=== PATIENT | male | born 1945 | race Caucasian/White ===

== ENCOUNTER → 2017-04-13 | Outpatient (CLI) | payer OTHER | LOC: BMCIMAGING 11:43 | PROVIDERS: ATTEND Physician Assistant Medical | DX: R09.02 Hypoxemia (principal) ==

== ENCOUNTER 2017-05-04 07:54 | Inpatient (IN) | payer OTHER ==
[2017-05-04] MEDS ORDERED: ASPIRIN EC 325 MG TAB PO ONE ×2 (07:57→08:46)
[2017-05-04] MEDS ORDERED: diphenhydrAMINE 25 MG CAP PO ONE ×2 (07:57→08:46)
[2017-05-04] MEDS ORDERED: NS 1,000 ML IV ONE (07:57)
[2017-05-04] MEDS ORDERED: DIAZEPAM 5 MG TAB PO ONE (07:57)
[2017-05-04] MEDS ORDERED: FAMOTIDINE 20 MG TAB PO ONE (07:57)
--- NOTE | 2017-05-04 08:01 | PDHPUP ---
History & Physical Update H&P update statement: This history and physical update is based on an assessment of the patient which was completed after admission or registration (within 24 hours), but prior to the surgery/procedure. H&P update: H&P reviewed & patient examined, no change in patient's condition since H&P completed
--- NOTE | 2017-05-04 08:01 | PDPROPOC ---
Sedation Plan of Care Sedation Plan of Care: vital signs stable, mental status noted, patient educated of risks, benefits, alternatives, patient can tolerate sedation ASA Classification: ASA 3 Planned drugs: fentanyl, midazolam Mallampati Score: Class 3 Mallampati Reference Image: Patient passed 3-3-2 rule?: Yes
--- NOTE | 2017-05-04 08:21 | CPEKG ---
Heart Rate: 108 RR Interval: 556 P-R Interval: 176 QRSD Interval: 142 QT Interval: 376 QTC Interval: 504 P [place]: 43 QRS [place]: -84 T Wave [place]: 31 EKG Severity - ABNORMAL ECG - EKG Impression: SINUS TACHYCARDIA EKG Impression: PROBABLE LEFT ATRIAL ABNORMALITY EKG Impression: RIGHT BUNDLE BRANCH BLOCK Electronically Signed By: Alfredo Davis 04-May-2017 08:54:14
[2017-05-04 08:36] LABS: PLATELET COUNT 377 10^3/uL (150-400)
[2017-05-04 08:44] LABS: INR 1.08 (0.83-1.16); PROTIME(PATIENT) 14.2 SEC (12.0-15.0)
[2017-05-04] MEDS ORDERED: FAMOTIDINE 20 MG TAB ONE (08:46)
[2017-05-04] MEDS ORDERED: DIAZEPAM 5 MG TAB ONE (08:46)
[2017-05-04] MEDS ORDERED: IOPAMIDOL (ISOVUE-370) 150 ML BTL IV ONE ×3 (09:18→11:55)
[2017-05-04] MEDS ORDERED: MIDAZOLAM 2 MG/2 ML VIAL ONE ×2 (09:18→11:55)
[2017-05-04] MEDS ORDERED: fentaNYL 100 MCG/2 ML INJ ONE ×2 (09:18→11:55)
[2017-05-04] MEDS ORDERED: HEPARIN 10,000 UNIT/10 ML MDV (1,000 UNIT/ML) ONE (09:18)
[2017-05-04] MEDS ORDERED: VERAPAMIL 5 MG/2 ML VIAL ONE (09:18)
[2017-05-04] MEDS ORDERED: LIDOCAINE 1% 300 MG/30 ML SDV ONE ×2 (09:18→11:55)
[2017-05-04] MEDS ORDERED: IOPAMIDOL (ISOVUE-300) 100 ML BTL ONE (10:14)
[2017-05-04] MEDS ORDERED: IOPAMIDOL (ISOVUE 370) 100 ML BTL IV ONE (10:15)
--- NOTE | 2017-05-04 11:30 | ECHO ---
[email or web address] [address] [address] Main: [phone] Fax: Transthoracic Echocardiogram Name: JENNIFER TADEO MR#: [id number] Study Date: 05/04/2017 Study Time: 08:49 AM Date of : 1945 Age: 71 year(s) Height: 183 cm (72.05 in.) Weight: 83.01 kg (183 lb.) BSA: 2.05 m2 Gender: Male Examination: Echo Indication: Pre Cath, Decreased O2 Sat's Image Quality: Contrast: Requested by: Carlos A Vegas BP: 136 mmHg/85 mmHg Heart Rate: Rhythm: Tachycardia Indication: Pre Cath, Decreased O2 Sat's Procedure Staff Cupola Patcher: Antonino Soria [facility] Reading Physician: Jessy Krishnamurthy Requesting Provider: Conclusions: Normal size left ventricle. Normal size right ventricle. Normal RV function. The left atrium is mildly to moderately dilated. The interatrial septum is aneurysmal with no evidence of PFO by colorflow doppler.. Mild mitral valve stenosis is present. There is mild focal calcification on the posteior mitral annulus. Mild aortic valve regurgitation is present. Mild calcific aortic valve stenosis. The Av Vmax is 2.9 m/s with a Av mean PG of 19 mmHg. The velocities thru the aortic valve may be under estimated due to irregular heart rhythm.. No prior echocardiogram Measurements: Chambers Valvular Assessment AV/MV Valvular Assessment TV/PV Normal Normal Normal Name Value Range Name Value Range Name Value Range Ao Awilda (MM): 3.9 cm (2.2 cm-3.7 AV Vmax: 2.90 m/s (1 m/s-1.7 PV Vmax: 0.77 m/s (0.6 m/s-0.9 cm) m/s) m/s) IVSd (2D): 1.1 cm (0.6 cm-1.1 AV maxP mmHg ( - ) PV PGmax: 2 mmHg ( - ) cm) AV meanP mmHg ( - ) LVDd (2D): 4.5 cm (4.2 cm-5.9 RAY (VTI): 1.1 cm ( - ) cm) AR (PHT): 559 ms ( - ) LVDs (2D): 3.0 cm (2.1 cm-4 MV E Vmax: 1.23 m/s ( - ) cm) MV A Vmax: 2.02 m/s ( - ) LVPWd (2D): 1.3 cm (0.6 cm-1 cm) MV E/A: 0.61 ( - ) LVOTd 2.1 cm 2.1 cm mm MV meanP mmHg ( - ) LVEF (2D): 61 (>=54 %) MVA (Vmax): 1.9 m/s ( - ) Patient: JENNIFER TADEO Study Date: 05/04/2017 Page 1 of 2 08:49 AM Continued Measurements: Chambers Valvular Assessment AV/MV Name Value Name Value LADs Lon.3 cm MV VTI: 36.90 cm LA Area: 23.9 cm2 AR Vmax: 4.10 cm/s LA Volume: 84 ml LA Volume Index: 41.0 ml/m2 Findings: Left Ventricle: Normal size left ventricle. Mild concentric LV hypertrophy. Normal global systolic LV function. EF is 61 %. No regional wall motion abnormality. Right Ventricle: Normal size right ventricle. Normal RV function. Left Atrium: The left atrium is mildly to moderately dilated. The interatrial septum is aneurysmal with no evidence of PFO by colorflow doppler.. Right Atrium: The right atrium is normal in size. Mitral Valve: Mild mitral valve stenosis is present. There is no mitral valve regurgitation. There is mild focal calcification on the posteior mitral annulus. Aortic Valve: Severe aortic valve calcification is present. Mild aortic valve regurgitation is present. Mild calcific aortic valve stenosis. The Av Vmax is 2.9 m/s with a Av mean PG of 19 mmHg. The velocities thru the aortic valve may be under estimated due to irregular heart rhythm.. Tricuspid Valve: The tricuspid valve appears normal. There is no tricuspid valve regurgitation. Pulmonic Valve: The pulmonic valve is normal in appearance and function. Aorta: The aorta is normal. Pericardium: No pericardial effusion. Exam Comments: Incidental note, the patients D-dimer was at 20 ug/mLFEU. (No Signature Object) Patient: JENNIFER TADEO Study Date: 05/04/2017 Page 2 of 2 08:49 AM [id number]
[2017-05-04] MEDS ORDERED: HYDROCODONE/APAP 5/325 TAB PO PRN (13:09)
[2017-05-04] MEDS ORDERED: ATROPINE SULFATE 1 MG/10 ML SYR IVP PRN (13:09)
[2017-05-04] MEDS ORDERED: NITROGLYCERIN 0.4 MG BTL SL PRN (13:09)
[2017-05-04] MEDS ORDERED: ONDANSETRON 4 MG/2 ML VIAL IVP PRN (13:09)
[2017-05-04] MEDS ORDERED: OXYCODONE/APAP 5/325 TAB PO PRN (13:09)
--- NOTE | 2017-05-04 13:36 | PDDXCAT ---
Diagnostic Cath Note - . Date: 05/04/17 Note Keeper: Shasta Indication: CCC Class III and IV angina on medical treatment - Materials Left Heart Cath size: 6F Left Heart Cath materials: standard multipack (JL4, JR4, pigtail) Right Heart Cath size: 7F - Findings-Left Heart Catheterization LM: 6 mm in size and trifurcates into an LAD circ and ramus intermedius. No flow limiting obstruction. LAD: 4mm in size with luminal irregularities consistent with underlying atherosclerosis no flow limiting obstruction. LCX: dominant circumflex with luminal irregularity consistent with atherosclerosis no significant flow limiting obstruction. RCA: Non dominant with 40-50% obstruction CHINA III flow Ramus: 2mm with CHINA III flow no flow limiting obstruction EDP: 12mmHG LVEF: 60% Wall motion: Normal wall motion with inferior lv diverticulum - Findings-Right Heart Catheterization RA: 9/12/9 mmHg RV: 60/7 edp 11mmHg PA: 61/26/39 mean mmHg PAOP: 23/26/25mmHg CO: 5.2 L/min CI: 2.52 L/MIN/meter squared Complications: none Estimated blood loss: <50ml Closure method: Angioseal (also manual pressure for venous sheath removal) Assessment: The patient has significant but non flow limiting coronary disease. 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 Pulmonary hypertension with trans pulmonic gradient suggestive of primary lung disease. No evidence of shunt or ASD. no catheter based evidence of aortic stenosis. (NO GRADIENT ACROSS AORTIC VALVE) The patient is to be admitted for hypoxia, pulmonary consultation and evaluation of central nodes. Plan: Medical admission for serious hypoxemia and pulmonary hypoxemia. Patient Problems: Problems Problem Status Onset Hypokalemia Acute
--- NOTE | 2017-05-04 19:56 | WOCRNPDOC ---
EMILY Advanced Assessment Note - Skin Integrity Problem, Advanced Assess Left Gluteal Cleft Pressure Injury Dressing Type: Allevyn Life Exudate Characteristic(s): None Integumentary Issue Intervention: Visualized Under Dressing, Hydrogel Applied Maryann Wound Tissue: Blanching, Erythema, Intact Wound Bed Color: [place] Wound Edges: Well Defined Site Measurement - Head-to-Toe Length X Width X Depth (cm): 0.8x1x0.1 Pressure Injury Stage: Stage 2 Pressure Injury Present on Admit: Yes Skin Integrity Problem Comment: Patient rolled to his left side with assist from LAVINIA Brown. Patient with small partial thickness opening to left gluteal cleft. When I inform patient of this, he states that he gets this "when he sits in his chair for too long." Will initiate offloading measures and wound care will round again next week.
[2017-05-04] MEDS ORDERED: NICOTINE 14 MG/24 HR PATCH TD SCH (21:00)
[2017-05-05] MEDS ORDERED: ASPIRIN 325 MG TAB PO SCH (09:00)
--- NOTE | 2017-05-05 09:45 | ASMTCASEMG ---
Living Arrangements What is your living Answers: Alone arrangement? Who do you live with? Type Of Residence What kind of residence do Answers: House you live in? Discharge Plan Comments Coordination Status Comments Notes: Pt is a 71 y/o man admitted for dyspnea and irregular heart. Pt had a left and right heart cath. Pt will most likely d/c independent when medically stable. No therapies ordered at this time. CM available for changes. Plan: Independent Date Signed: 05/05/2017 09:44 AM Electronically Signed By:GRACIE Fay
[2017-05-05] MEDS ORDERED: IPRATROPIUM/ALBUTEROL 3 ML DEYVIAL IH PRN (11:00)
[2017-05-05 11:56] VITALS: BP 135/80; PULSE 99; RESP 19; TEMP 98.5; O2SAT 9
[2017-05-05] MEDS ORDERED: TIOTROPIUM INHALER 18 MCG/DOSE 5 DOSE/MDI IH SCH (12:00)
--- NOTE | 2017-05-05 12:01 | PDHOMEO2F ---
Home Oxygen Face to Face Home Orders: I certify that a physician or a nurse practitioner or physician's title i instructional assistant has had a lhlj-mn-yiga encounter with this patient on the date of this order due to the diagnosis listed, which relates to the primary reason the patient requires home oxygen. Alternative treatments have been tried, or considered, and deemed ineffective. It is anticipated that supplemental oxygen will result in improvement with treatment. Home oxygen qualifying diagnosis: copd SpO2 on room air (%): 80 Frequency of home oxygen needed: continuous Home oxygen liters per minute: 3 lpm rest, 5 lpm activity Home oxygen delivery device: nasal cannula Concentrator: Yes E-tanks for mobility and back up: Yes If ordering portable O2, is the patient mobile in the home?: Yes I certify that, based on these findings, the home oxygen is medically necessary for this patient for the following length of time. Length of time home oxygen needed: 99 years
--- NOTE | 2017-05-05 17:25 | GCON ---
[f rep st] CONSULTATION PULMONARY CONSULTATION DATE OF CONSULTATION: 05/05/2017 HISTORY OF PRESENT ILLNESS: This patient is a 71-year-old male with a longstanding history of COPD a s well as colon cancer in the distant past, who presented to Cardiology Clinic on 05/03, complaining of about 3 weeks of shortness of breath following a flu-like illness and also mentioned that he had p alpitations for several years, some arm pain, but no chest pain. His oxygen saturation was found to be 80% on room air. An EKG showed multifocal atrial tachycardia. It was recommended that he be admi tted to the hospital for urgent workup, but he declined and came back electively the next day. He un derwent cardiac catheterization showing a mean pulmonary artery pressure of 39 and a wedge pressure o f 25 and coronary artery disease that was nonobstructive. In any case, he was kept in the hospital o vernight to undergo pulmonary evaluation. He does have a substantial smoking history of some greater than 50 years. He did quit several years ago, but continues to smoke a pipe at this time. He has very few symptoms up until these last few we eks, and as I said, felt this was due to a viral illness. He has had a morning cough producing clear sputum but no hemoptysis. He denied any syncopal episodes and only the shortness of breath as descr ibed above. He said that he has not seen a branch operations coordinator in the past and did not recall doing pulmon annie function tests previously. 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 His colon cancer was treated with radiation therapy and chemo and he said he was t hought to be disease-free, but had his workup at [facility], I believe with Dr. Kirt jerry. REVIEW OF SYSTEMS: Otherwise negative. PAST MEDICAL HISTORY: Includes: 1. Colon cancer as described above. 2. Diabetes. 3. Probable chronic hypoxemia but undocumented at this time. 4. COPD, which has been mentioned in remote progress notes. 5. Kidney stones. 6. Remote stroke. 7. Hypothyroidism. 8. Depression. 9. A nonhealing wound in the gluteal folds. PAST SURGICAL HISTORY: Only includes eye surgery. SOCIAL HISTORY: As I said, a more than 61-gjid-wgyb smoking history, multiple years of type. No rec reational drugs. FAMILY HISTORY: Includes coronary artery disease. CURRENT MEDICATIONS: Include aspirin, morphine, Nicoderm, Zofran, Percocet. PHYSICAL EXAMINATION: VITAL SIGNS: He was afebrile. His blood pressure 135/80, heart rate 99, in s inus rhythm. Respirations 19, oxygen saturation 95% on 3 L nasal cannula. GENERAL: He was awake, a lert, in no apparent distress, a mildly confusing historian, but generally alert and oriented x3. He did speak in full sentences without using accessory muscles for breathing. HEENT: Pupils equally r ound and reactive to light, nonicteric and noninjected. Mucous membranes are moist without erythema or thrush. NECK: Supple without adenopathy or jugular vein distention. RESPIRATORY: Breath sounds had a few crackles in the bases but mostly clear to auscultation without wheezing. HEART: Regular rate and rhythm with what I thought to be a 2/6 systolic ejection murmur. GI: Abdomen was soft, non tender, nondistended without hepatosplenomegaly. EXTREMITIES: Showed no edema, but he did have meenu ed good clubbing of his digits, all 10 digits of his hands. NEUROLOGIC: Grossly nonfocal including cranial nerves, deep tendon reflexes. SKIN: Warm and dry, without evidence of rash. OBJECTIVE DATA: Includes essentially a normal basic metabolic panel, hematocrit of 43. An EKG with a right bundle branch block. An echocardiogram dated 05/04/2017, had no tricuspid regurgitant jet, b ut the right atrium was normal. The right ventricle was normal. The left atrium showed zyor-lr-pwxp rate dilatation. Left ventricle was normal, but may have had a diverticula according to Dr. Vegas. Left ventricular hypertrophy was mild. There was no comment on the right atrial pressure or diastol ic function, but the ejection fraction was 60% with normal right ventricular function. There was mil d mitral stenosis as well as mild aortic regurgitation. He also underwent a right heart catheterizat ion on 05/04/2017, showing a right atrial pressure of 9, right ventricular pressure of 60/7, PA press ure of 61/26, with a mean of 39, a wedge pressure of 25, and cardiac output of 5.2 with a cardiac ind ex of 2.52. Although this was not reported, the PVR based on those numbers is 2.69, and the transpul monary gradient is 14. In addition, he underwent a CT scan on 05/04 showing severe bilateral upper l obe predominant emphysema with possible honeycombing of the bilateral lower lobes. There was promine nt hilar adenopathy with a left hilar lymph node measuring 3.5 x 3 cm and a right peritracheal node m easuring 2.8 x 1.6 cm. There were no obvious masses. No obvious traction bronchiectasis. ASSESSMENT AND PLAN: 1. Hypoxemia. I suspect this is been going on for some time based on the clubbing. I also suspect that he has more chronic obstructive pulmonary disease than interstitial lung disease on his CT scan and will eventually need pulmonary function tests to help delineate that better. Clubbing can be see n in chronic interstitial lung disease as well as chronic hypoxemia. In any case, his hematocrit was normal at 43, which argues somewhat against this process. In any case, he is quite stable at this p oint and should go home on oxygen at 3 L/minute at rest and 5 L with activity. I will see him as an outpatient where we will perform ambulatory oximetry studies. 2. Probable chronic obstructive pulmonary disease based on his CT scan and smoking history, looks qu ite severe. He will need pulmonary function testing as described. In the meantime, he can go on Spi tila to be used every day even if he feels well and use albuterol as either ProAir or Proventil meter ed dose inhaler as needed alone. I discussed these inhalers with him and the plan for ongoing manage ment in some detail today as well as oxygen, that he should maintain above 90% at all times. 3. Striking lymphadenopathy. The differential diagnoses here certainly include sarcoidosis, lymphom a, or recurrent colon cancer. I do not see evidence of an ongoing current infection to support react chris adenopathy. He may eventually require a biopsy of these, but I will try to obtain films from [facility] and compare them to previous. Today, we had a discussion about obtaining b iopsy, which I would do by either mediastinoscopy or endobronchial ultrasound. Since EBUS is not cur rently available at [facility], I will likely send him for mediastinoscopy. I think that a blind attempt at transbronchial fine-needle aspirate of 1 of these lymph nodes is fraught with risks given the severit y of his emphysema. 4. Moderate pulmonary hypertension based on a mean pulmonary pressure of between 35 and 45, accordin g to international pulmonary hypertension guidelines. His transpulmonary gradient is 14, which does suggest that there is an element of pulmonary hypertension related to underlying lung disease. I jerry pect there is diastolic dysfunction on his echo based on his age and the tolg-uo-rolifabo left atrial enlargement. This is likely a contributor. His pulmonary vascular resistance based on the numbers reported also calculates to 2.69 Wood units, which is less than 3 and not consistent with pulmonary a rterial hypertension. In either case, I do not think that he has pulmonary arterial hypertension, is not a candidate for PH-specific drugs, such as endothelium antagonists, phosphodiesterase inhibitors , or prostaglandins analogs. I suspect that he is primarily group 3 disease related to his underlyin g lung disease, particularly his hypoxemia, and we may pursue other issues such as a serum LUKE as wel l as serum carcinoembryonic antigen to help workup not only the pulmonary hypertension, but the lymph adenopathy as discussed above. /[id number]/MODL
--- NOTE | 2017-05-05 23:22 | GDS ---
[f rep st] DISCHARGE SUMMARY DISCHARGE DIAGNOSES: 1. Acute on chronic hypoxic respiratory failure. 2. Noninsulin dependent diabetes mellitus. 3. Current tobacco abuse with a 50 pack-year smoking history, now smoking pipes. 4. Palpitations with multi focal atrial tachycardia. 5. Increased dyspnea 3 weeks prior to arrival. 6. Severe central lobular emphysema with pulmonary fibrosis and abnormal mediastinal and bilateral h ilar lymphadenopathy. 7. Chronic obstructive pulmonary disease. 8. Non flow limiting coronary artery disease. 9. Mild mitral stenosis and aortic stenosis. PROCEDURES: 05/04/2017: Echocardiogram which shows normal RV size with normal RV function. Mild to moderately dilated left atrium, interatrial septum is aneurysmal with no evidence of PFO. Mild mitr al valve stenosis with mild focal calcification of the posterior mitral anulus. Mild aortic valve re gurgitation with mild aortic valve stenosis. 05/04/2017: Chest CTA which showed severe central lobular emphysema, coronary atherosclerosis, ather osclerotic aorta without aneurysm or dissection. Superimposed interstitial fibrosis with bilateral d iffuse ground-glass opacities and peripheral honeycombing. Abnormal mediastinal and bilateral hilar lymphadenopathy which may represent sarcoidosis, metastasis, lymphoma versus less likely inflammatory or infectious etiology. 05/04/2017: Right and left heart catheterization. Left heart catheterization shows normal left main which trifurcate into the LAD, circumflex, and ramus intermedius with no flow obstruction seen in th e left main. LAD has luminal irregularities consistent with underlying atherosclerosis with no flow- limiting obstruction. Left circumflex is dominant with luminal irregularities present. RCA nondomin ant with a 40-50% obstruction with CHINA-3 flow. Ramus intermedius has CHINA-3 flow with no flow-limit ing obstruction, LVEDP of 12 mmHg, LVEF of 60%. RA with . RV 60/7 with an EDP of 11. PA of 6 [birth year] as mean. Cardiac output 5.2 L/minute. Cardiac index of 2.52 L/minute/meter squared. The pa tient has non flow-limiting coronary artery disease. 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 There is moderate pulmonary hypertension with a transpulmonic gradient suggesti ve of primary lung disease. There is no evidence of shunt or ASD. No catheter based evidence of aor tic stenosis. PHYSICIANS: 1. Dr. Carlos A Vegas. 2. Dr. Say Altamirano. BRIEF HISTORY: Please see dictated H and P from Dr. Vegas for complete details. The patient is a [age]-year-old male who recently presented to establish care after noting 3 weeks of worsening dyspnea. Upon arrival to the office, his oxygen saturation was 80%. His EKG showed multifocal atrial tachycar gutierrez, LAFB and right bundle branch block. Given his hypoxic respiratory failure, he was advised for c ardiac catheterization for further risk stratification. His CTA shows the above findings and heart c atheterization suggests primarily a lung process. HOSPITAL COURSE BY PROBLEM: 1. Coronary artery disease. He has non flow limiting coronary artery disease and may be medically m anaged with aspirin. Addition of statin can be considered as an outpatient. His total cholesterol i s 134, LDL of 86, HDL of 38, triglycerides 91. 2. Chronic obstructive pulmonary disease. He is not on any treatment for this. He is being dischar ged on Spiriva and albuterol. He has been started on oxygen at 5 L/minute. He will need to see pulm onology as an outpatient for further workup and treatment of this. 3. Mediastinal lymph and hilar lymph nodes. This is worrisome for metastasis. He will have PFTs an d likely mediastinoscopy, but this may be scheduled as an outpatient. 4. Tobacco abuse. The patient was counseled on cessation. 5. Non insulin-dependent diabetes mellitus. His metformin is on hold. He is to resume this on , 05/07/2017. PHYSICAL EXAMINATION: VITAL SIGNS: On day of discharge, BP of 135/80, heart rate 99, O2 saturation of 90% on 3 L/minute, respirations 19, temp of 98.5. GENERAL: He is a pleasant male in no apparent distress. HEART: Regular rate and rhythm. LUNGS: Diminished. EXTREMITIES: Right groin site with out ecchymosis. Slight bruit present at groin site. LABORATORY DATA: BMP with sodium 141, potassium 3.9, chloride 106, CO2 21, BUN 17, creatinine 1.1, g lucose 152, NT proBNP 3788. CBC with WBC 9.32, hemoglobin 14.4, hematocrit 43.2, platelet count 377. RESULTS PENDING: None. DIET: Per previous. ACTIVITY: Groin precautions reviewed. DISCHARGE MEDICATIONS: Please see med reconciliation. He is being discharged on aspirin and vitamin C. His new prescriptions are for Spiriva and albuterol. He has been started on oxygen at 3 L/minute. DISCHARGE INSTRUCTIONS: 1. Groin precautions. 2. Follow up with JULY Dotson on 05/11/2017. 3. Follow up with pulmonology per their office instructions. /[id number]/MODL
== END 2017-05-05 15:48 | disposition home or self-care (01) | DRG 189 ==
LOC: FCATH 07:54 → F2W 13:09
PROVIDERS: ADMIT Internal Medicine Cardiovascular Disease; ATTEND Internal Medicine Cardiovascular Disease
PROC: B2151ZZ Fluoroscopy of Left Heart using Low Osmolar Contrast (ICD-10-PCS; principal; 2017-05-04)
PROC: 4A023N8 Measurement of Cardiac Sampling and Pressure, Bilateral, Percutaneous Approach (ICD-10-PCS; principal; 2017-05-04)
PROC: B2111ZZ Fluoroscopy of Multiple Coronary Arteries using Low Osmolar Contrast (ICD-10-PCS; principal; 2017-05-04)
DX: J96.21 Acute and chronic respiratory failure with hypoxia (principal); J43.2 Centrilobular emphysema; I27.23 Pulmonary hypertension due to lung diseases and hypoxia; I47.1 Supraventricular tachycardia; R59.0 Localized enlarged lymph nodes; F17.290 Nicotine dependence, other tobacco product, uncomplicated; Z87.891 Personal history of nicotine dependence; I25.10 Atherosclerotic heart disease of native coronary artery without angina pectoris; L89.322 Pressure ulcer of left buttock, stage 2; E11.9 Type 2 diabetes mellitus without complications; Z79.84 Long term (current) use of oral hypoglycemic drugs
CPT/HCPCS: C1760; C1769; J1644; J2250; J3010; Q9967

== ENCOUNTER 2017-06-05 12:11 | Emergency (ER) | payer OTHER ==
[2017-06-05 12:18] VITALS: TEMP 98.1
[2017-06-05] MEDS ORDERED: IPRATROPIUM/ALBUTEROL 3 ML DEYVIAL IH ONE (12:45)
--- NOTE | 2017-06-05 12:45 | EDPHY ---
H & P Time Seen by Provider: 06/05/17 12:24 HPI/ROS: CHIEF COMPLAINT: Shortness of breath HISTORY OF PRESENT ILLNESS: Patient was discharged on 05/05/2017 with diagnosis of severe COPD. He also has nonobstructive coronary disease and had both CT angiography and catheterization on 05/04/2017. He is chronically on 3 L nasal cannula although it sounds like at home he often does not wear it, because he says it really tethers him to the length of the oxygen tubing. He presents today brought in by his sister not wearing oxygen saying he is short of breath. Says the little bit worse over the last 2 weeks and is worse with exertion or when he is not wearing his oxygen. He has a chronic cough which is unchanged in this is not associated with chest pain or diaphoresis or syncope, leg swelling or fever or chills. REVIEW OF SYSTEMS: Eye: no change in vision ENT: no sore throat Cardiac: no chest pain or syncope Pulmonary: HPI, no hemoptysis. Abdomen: no vomiting, diarrhea, abdominal pain Musculoskeletal: no back pain or leg swelling Skin: no rash Neuro: no headache Constitutional: no fever : no urinary symptoms A comprehensive 10 point review of systems is otherwise negative aside from elements mentioned in the history of present illness. PAST MEDICAL HISTORY: COPD and nonobstructive coronary disease. Aortic stenosis. Colorectal cancer. Social history: Smokes a pipe. General Appearance: Alert and conversant, cooperative. Eyes: No scleral icterus. ENT, Mouth: Normal mucous membranes. Respiratory: Speaks in full sentences, very slight expiratory wheezing, no extra work of breathing. Cardiovascular: Regular rate and rhythm. 1/6 systolic murmur Gastrointestinal: Abdomen is soft and non tender. Neurological: Alert, face symmetric, normal motor and sensory in extremities. Skin: Warm and dry, no rashes. Musculoskeletal: No peripheral edema. No calf tenderness. Psychiatric: Not agitated. Emergency Department course/MDM: 12-lead EKG interpreted by me; official reading is in trace master. My interpretation is sinus rhythm rate 85 with right bundle branch block, no ischemic changes. Negative troponin. Afebrile and saturation is in the mid 90s on nasal cannula 3 L which is his baseline. Patient appears to be essentially at his baseline and that he feels back to normal when the oxygen is reapplied. I think it is reasonable to discharge him with a short course oral prednisone. 1409: Discussed with the patient and it turns out that he has only been on his inhalers for 3 days, he tells me did not understand that was going to help his breathing. Emphasized him the ports of using his Spiriva and albuterol, will place him on 5 days of oral prednisone. Smoking Status: Light smoker Constitutional: Initial Vital Signs Temperature (C) 36.7 C 06/05/17 12:12 Heart Rate 107 H 06/05/17 12:12 Respiratory Rate 20 06/05/17 12:12 Blood Pressure 124/76 H 06/05/17 12:12 O2 Sat (%) 77 L 06/05/17 12:12 O2 Delivery Mode Nasal Cannula O2 (L/minute) 2 Allergies/Adverse Reactions: No Known Allergies Allergy (Unverified 01/16/14 16:33) Home Medications: Medication Instructions Recorded Ascorbic Acid [Vitamin C 250 mg 250 mg PO DAILY 05/04/17 (*)] Aspirin [Aspirin 325 mg (*)] 325 mg PO DAILY 05/04/17 Albuterol Sulfate [Ventolin Hfa] 18 gm IH Q6HRS PRN #1 hfa.aer.ad 05/05/17 Tiotropium Inhaler [Spiriva 18 mcg IH DAILY 30 Days #1 mdi 05/05/17 Handihaler] predniSONE [prednisone 20mg (RX)] 40 mg PO DAILY 5 Days tab 06/05/17 Medical Decision Making - Diagnostics Imaging Results: Imaging Impressions Chest X-Ray 06/05/17 12:45 Impression: UIP/emphysema. If there is concern for occult underlying pneumonia, then consider noncontrast chest CT. Imaging: I viewed and interpreted images myself Differential Diagnosis: Differential diagnosis considered for shortness of breath including but not limited to pulmonary infectious process, COPD, asthma, pulmonary embolus and congestive heart failure. - Data Points Laboratory Results: Laboratory Results 06/05/17 12:35 06/05/17 12:35 06/05/17 06/05/17 12:35 12:35 WBC 9.50 10^3/uL 10^3/uL (3.80-9.50) RBC 4.23 10^6/uL L 10^6/uL (4.40-6.38) Hgb 12.8 g/dL L g/dL (13.7-17.5) Hct 38.1 % L % (40.0-51.0) MCV 90.1 fL fL (81.5-99.8) MCH 30.3 pg pg (27.9-34.1) MCHC 33.6 g/dL g/dL (32.4-36.7) RDW 13.7 % % (11.5-15.2) Plt Count 370 10^3/uL 10^3/uL (150-400) MPV 9.8 fL fL (8.7-11.7) Neut % (Auto) 77.8 % H % (39.3-74.2) Lymph % (Auto) 11.7 % L % (15.0-45.0) [place] % (Auto) 5.8 % % (4.5-13.0) Eos % (Auto) 2.3 % % (0.6-7.6) Baso % (Auto) 0.5 % % (0.3-1.7) Nucleat RBC Rel Count 0.0 % % (0.0-0.2) Absolute Neuts (auto) 7.39 10^3/uL H 10^3/uL (1.70-6.50) Absolute Lymphs (auto) 1.11 10^3/uL 10^3/uL (1.00-3.00) Absolute Monos (auto) 0.55 10^3/uL 10^3/uL (0.30-0.80) Absolute Eos (auto) 0.22 10^3/uL 10^3/uL (0.03-0.40) Absolute Basos (auto) 0.05 10^3/uL 10^3/uL (0.02-0.10) Absolute Nucleated RBC 0.00 10^3/uL 10^3/uL (0-0.01) Immature Gran % 1.9 % H % (0.0-1.1) Immature Gran # 0.18 10^3/uL H 10^3/uL (0.00-0.10) Sodium 140 mEq/L mEq/L (135-145) Potassium 4.0 mEq/L mEq/L (3.5-5.2) Chloride 103 mEq/L mEq/L (97-110) Carbon Dioxide 23 mEq/l mEq/l (22-31) Anion Gap 14 mEq/L mEq/L (8-16) BUN 16 mg/dL mg/dL (7-23) Creatinine 1.0 mg/dL mg/dL (0.7-1.3) Estimated GFR > 60 Glucose 191 mg/dL H mg/dL (70-100) Calcium 9.3 mg/dL mg/dL (8.5-10.4) Troponin I < 0.012 ng/mL ng/mL (0.000-0.034) Medications Given: Discontinued Medications Albuterol/Ipratropium (Duoneb) 3 ml IH EDNOW ONE Stop: 06/05/17 12:46 Last Admin: 06/05/17 12:48 Dose: 3 ml Departure - Departure Disposition: Home, Routine, Self-Care Clinical Impression: COPD (chronic obstructive pulmonary disease) Qualifiers: COPD type: unspecified COPD Qualified Code(s): J44.9 - Chronic obstructive pulmonary disease, unspecified Condition: Good Instructions: COPD (Chronic Obstructive Pulmonary Disease) (ED) Additional Instructions: Use your spiriva and albuterol as prescribed. Referrals: Julianna Gruber PA [Primary Care Provider] - As per Instructions Prescriptions: predniSONE [prednisone 20mg (RX)] 40 mg PO DAILY 5 Days tab
--- NOTE | 2017-06-05 12:53 | CPEKG ---
Heart Rate: 85 RR Interval: 706 P-R Interval: 180 QRSD Interval: 142 QT Interval: 408 QTC Interval: 486 P [place]: 41 QRS [place]: -75 T Wave [place]: 28 EKG Severity - ABNORMAL ECG - EKG Impression: SINUS RHYTHM EKG Impression: RIGHT BUNDLE BRANCH BLOCK Electronically Signed By: Severo Harris 05-Jun-2017 14:04:26
[2017-06-05 13:02] LABS: PLATELET COUNT 370 10^3/uL (150-400)
[2017-06-05 13:28] VITALS: RESP 18
[2017-06-05 14:54] VITALS: BP 118/89; PULSE 92; O2SAT 94
== END 2017-06-05 15:11 | disposition home or self-care (01) ==
DX: J44.9 Chronic obstructive pulmonary disease, unspecified (principal); F17.290 Nicotine dependence, other tobacco product, uncomplicated; Z79.82 Long term (current) use of aspirin; Z85.038 Personal history of other malignant neoplasm of large intestine

== ENCOUNTER 2017-06-18 09:28 | Emergency (ER) | payer OTHER ==
--- NOTE | 2017-06-18 09:39 | CPEKG ---
Heart Rate: 82 RR Interval: 732 P-R Interval: 172 QRSD Interval: 140 QT Interval: 400 QTC Interval: 468 P [place]: 59 QRS [place]: -73 T Wave [place]: 42 EKG Severity - ABNORMAL ECG - EKG Impression: SINUS RHYTHM EKG Impression: RIGHT BUNDLE BRANCH BLOCK Electronically Signed By: Stef Hays 18-Jun-2017 16:12:06
[2017-06-18] MEDS ORDERED: IPRATROPIUM/ALBUTEROL 3 ML DEYVIAL IH ONE (10:25)
--- NOTE | 2017-06-18 10:25 | EDPHY ---
H & P Time Seen by Provider: 06/18/17 10:23 HPI/ROS: Chief complaint. Insomnia, anxiety HPI. 71-year-old male presents emergency department by EMS with shortness of breath over the past month. He feels is worse the last few days. He has had anxiety and it is hard to sleep. He does not really walk much he says he has shortness of breath at rest. He is normally on 3 L of oxygen. His O2 saturation is 97% on 3 L though was 86% on room air. She has had slight cough but no fever. No leg pain or swelling. Then he does tell me slightly swollen feet. Denies chest discomfort. He has had similar symptoms previously. He has not seen a physician recently. ROS Constitutional. Weakness Eyes. no problems with vision ENT. no sore throat, no nasal drainage Cardiovascular. no chest pain Respiratory. Shortness of breath without cough Abdominal. no abdominal pain, no nausea/vomiting, no diarrhea . no problems urinating MS. Slight swelling to feet Skin. no rash Lymph. no swollen glands Neuro. Chronically difficulty walking secondary to breathing problems Past Medical/Surgical History: Aortic stenosis, COPD, coronary artery disease, colorectal cancer Social History: , nonsmoker, no alcohol Smoking Status: Former smoker Physical Exam: General Appearance: Alert well-developed male anxious mild distress vital signs significant for oxygen saturation 86% on room air Eyes: Pupils equal and round no pallor or injection. ENT, Mouth: Mucous membranes are moist. Respiratory: No retractions. Inspiratory expiratory rales/rhonchi Cardiovascular: Regular rate and rhythm. Gastrointestinal: Abdomen is soft and nontender, no masses, bowel sounds normal. Neurological: Awake and alert, sensory and motor exams grossly normal. Skin: Warm and dry, no rashes. Musculoskeletal: Neck is supple nontender. Extremities symmetrical, full range of motion. Psychiatric: Patient is oriented X 3, there is no agitation. Constitutional: Initial Vital Signs Temperature (C) 36.7 C 06/18/17 09:37 Heart Rate 90 06/18/17 09:37 Respiratory Rate 20 06/18/17 09:37 Blood Pressure 143/87 H 06/18/17 09:37 O2 Sat (%) 86 L 06/18/17 09:37 O2 Delivery Mode Nasal Cannula O2 (L/minute) 3 Allergies/Adverse Reactions: No Known Allergies Allergy (Verified 06/18/17 09:36) Home Medications: Medication Instructions Recorded Ascorbic Acid [Vitamin C 250 mg 250 mg PO DAILY 05/04/17 (*)] Aspirin [Aspirin 325 mg (*)] 325 mg PO DAILY 05/04/17 Albuterol Sulfate [Ventolin Hfa] 18 gm IH Q6HRS PRN #1 hfa.aer.ad 05/05/17 Tiotropium Inhaler [Spiriva 18 mcg IH DAILY 30 Days #1 mdi 05/05/17 Handihaler] predniSONE [prednisone 20mg (RX)] 40 mg PO DAILY 5 Days tab 06/05/17 Albuterol Hfa Anes Only [Proair 2 puffs IH QID PRN #1 mdi 06/18/17 Hfa Icu (*)] Azithromycin [Zithromax] 250 mg PO DAILY #6 tab 06/18/17 Hydrochlorothiazide [HCTZ (*)] 25 mg PO DAILY #7 tab 06/18/17 LORazepam [Ativan] 1 mg PO Q6-8PRN PRN #7 tab 06/18/17 predniSONE 40 mg PO DAILY #8 tablet 06/18/17 Medical Decision Making - Diagnostics EKG Interpretation: EKG interpreted by me shows normal sinus rhythm normal interval. There is left axis deviation. There is right bundle branch block present. No significant ST elevation or depression. PACs present. Rate 82 EKG not changed from previous EKG in May 2017 Imaging Results: Imaging Impressions Chest X-Ray 06/18/17 10:26 Impression: Bilateral interstitial lung disease, with possible early superimposed pneumonia right midlung. Chest x-ray interpreted by me shows bilateral interstitial lung disease is not changed from previous x-rays. Possible early right middle lobe pneumonia Procedures: IV normal saline, monitor Prednisone and Ativan orally ED Course/Re-evaluation: Re-evaluation at 12:25 p.m..--patient is stable. He and I discussed imaging EKG and lab results. He is offered admission. He would prefer to be treated as outpatient. We discussed risks and benefits of this. He has a follow-up appointment with his regular physician tomorrow in like to keep this appointment as an outpatient. We then discussed treatment plan including criteria for return importance of follow-up and further evaluation. He expresses understanding and agreement Differential Diagnosis: It appears this is COPD exacerbation possibly the patient has a slight pneumonia. He will be treated with antibiotics. He does not have a Ventolin inhaler but only uses the Spiriva inhaler so he will be given a prescription and he and I discussed instructions of use of the Ventolin inhaler. He will be treated with Zithromax. He will be treated with prednisone for the next several days. He will be given a short course of Ativan for anxiety. - Data Points Laboratory Results: Laboratory Results 06/18/17 09:55 06/18/17 09:55 06/18/17 06/18/17 09:55 09:55 WBC 9.97 10^3/uL H 10^3/uL (3.80-9.50) RBC 4.79 10^6/uL 10^6/uL (4.40-6.38) Hgb 14.2 g/dL g/dL (13.7-17.5) Hct 44.5 % % (40.0-51.0) MCV 92.9 fL fL (81.5-99.8) MCH 29.6 pg pg (27.9-34.1) MCHC 31.9 g/dL L g/dL (32.4-36.7) RDW 14.4 % % (11.5-15.2) Plt Count 397 10^3/uL 10^3/uL (150-400) MPV 9.9 fL fL (8.7-11.7) Neut % (Auto) 82.7 % H % (39.3-74.2) Lymph % (Auto) 9.8 % L % (15.0-45.0) [place] % (Auto) 4.3 % L % (4.5-13.0) Eos % (Auto) 2.4 % % (0.6-7.6) Baso % (Auto) 0.3 % % (0.3-1.7) Nucleat RBC Rel Count 0.0 % % (0.0-0.2) Absolute Neuts (auto) 8.24 10^3/uL H 10^3/uL (1.70-6.50) Absolute Lymphs (auto) 0.98 10^3/uL L 10^3/uL (1.00-3.00) Absolute Monos (auto) 0.43 10^3/uL 10^3/uL (0.30-0.80) Absolute Eos (auto) 0.24 10^3/uL 10^3/uL (0.03-0.40) Absolute Basos (auto) 0.03 10^3/uL 10^3/uL (0.02-0.10) Absolute Nucleated RBC 0.00 10^3/uL 10^3/uL (0-0.01) Immature Gran % 0.5 % % (0.0-1.1) Immature Gran # 0.05 10^3/uL 10^3/uL (0.00-0.10) Sodium 140 mEq/L mEq/L (135-145) Potassium 4.6 mEq/L mEq/L (3.5-5.2) Chloride 102 mEq/L mEq/L (97-110) Carbon Dioxide 23 mEq/l mEq/l (22-31) Anion Gap 15 mEq/L mEq/L (8-16) BUN 11 mg/dL mg/dL (7-23) Creatinine 1.0 mg/dL mg/dL (0.7-1.3) Estimated GFR > 60 Glucose 134 mg/dL H mg/dL (70-100) Calcium 9.8 mg/dL mg/dL (8.5-10.4) Troponin I < 0.012 ng/mL ng/mL (0.000-0.034) NT-Pro-B Natriuret Pep 4000 pg/mL H pg/mL (0-125) Medications Given: Discontinued Medications Albuterol/Ipratropium (Duoneb) 3 ml IH EDNOW ONE Stop: 06/18/17 10:26 Last Admin: 06/18/17 10:39 Dose: 3 ml Lorazepam (Ativan) 1 mg PO EDNOW ONE Stop: 06/18/17 11:10 Last Admin: 06/18/17 11:12 Dose: 1 mg Prednisone (Prednisone) 60 mg PO EDNOW ONE Stop: 06/18/17 11:10 Last Admin: 06/18/17 11:12 Dose: 60 mg Departure - Departure Disposition: Home, Routine, Self-Care Clinical Impression: COPD exacerbation, Anxiety Condition: Good Instructions: COPD (Chronic Obstructive Pulmonary Disease) (ED) Additional Instructions: Continue regular medications. Ventolin inhaler using 2 puffs every 4-6 hours to help with breathing. Hydrochlorothiazide to act is diuretic and get rid of some extra fluid. Zithromax as antibiotic. Prednisone next several days to help with Breathing. Ativan for anxiety. Return for worsening symptoms. Re-evaluation by your regular physician in the next 1-2 days without fail. Referrals: Julianna Gruber PA [Primary Care Provider] - 1-2 days without fail Prescriptions: Albuterol Hfa Anes Only [Proair Hfa Icu (*)] 2 puffs IH QID PRN #1 mdi PRN Reason: Short Of Breath/Dyspnea Azithromycin [Zithromax] 250 mg PO DAILY #6 tab Hydrochlorothiazide [HCTZ (*)] 25 mg PO DAILY #7 tab LORazepam [Ativan] 1 mg PO Q6-8PRN PRN #7 tab PRN Reason: Anxiety predniSONE 40 mg PO DAILY #8 tablet
[2017-06-18 10:47] LABS: PLATELET COUNT 397 10^3/uL (150-400)
--- NOTE | 2017-06-18 10:47 | EDPHY ---
H & P Time Seen by Provider: 06/18/17 10:23 HPI/ROS: Chief complaint. Shortness of breath, anxiety HPI. [onset, timing, severity, modifying factors, similar symptoms previously, recently seen] ROS Constitutional. [no fever/chills, no weakness] Eyes. [no problems with vision] ENT. [no sore throat, no nasal drainage] Cardiovascular. [no chest pain] Respiratory. [no shortness of breath, no cough] Abdominal. [no abdominal pain, no nausea/vomiting, no diarrhea] . [no problems urinating] MS. [no calf pain/swelling, no neck/back pain, no joint pain] Skin. [no rash] Lymph. [no swollen glands] Neuro. [no headache, no dizziness, no difficulty walking or with speech] Smoking Status: Former smoker Constitutional: Initial Vital Signs Temperature (C) 36.7 C 06/18/17 09:37 Heart Rate 90 06/18/17 09:37 Respiratory Rate 20 06/18/17 09:37 Blood Pressure 143/87 H 06/18/17 09:37 O2 Sat (%) 86 L 06/18/17 09:37 O2 Delivery Mode Room Air O2 (L/minute) 3 Allergies/Adverse Reactions: No Known Allergies Allergy (Verified 06/18/17 09:36) Home Medications: Medication Instructions Recorded Ascorbic Acid [Vitamin C 250 mg 250 mg PO DAILY 05/04/17 (*)] Aspirin [Aspirin 325 mg (*)] 325 mg PO DAILY 05/04/17 Albuterol Sulfate [Ventolin Hfa] 18 gm IH Q6HRS PRN #1 hfa.aer.ad 05/05/17 Tiotropium Inhaler [Spiriva 18 mcg IH DAILY 30 Days #1 mdi 05/05/17 Handihaler] predniSONE [prednisone 20mg (RX)] 40 mg PO DAILY 5 Days tab 06/05/17 Departure - Departure Referrals: Julianna Gruber PA [Primary Care Provider] - As per Instructions
[2017-06-18] MEDS ORDERED: predniSONE 20 MG TAB PO ONE (11:09)
[2017-06-18] MEDS ORDERED: LORazepam 1 MG TAB PO ONE (11:09)
[2017-06-18 13:44] VITALS: BP 161/83
== END 2017-06-18 13:54 | disposition home or self-care (01) ==
LOC: EDUNIT# → EDBD
DX: F41.9 Anxiety disorder, unspecified (principal); J44.1 Chronic obstructive pulmonary disease with (acute) exacerbation; I25.10 Atherosclerotic heart disease of native coronary artery without angina pectoris; Z79.82 Long term (current) use of aspirin; Z85.038 Personal history of other malignant neoplasm of large intestine; Z87.891 Personal history of nicotine dependence
CPT/HCPCS: 71045; 93005; 99285; J7512

== ENCOUNTER → 2017-07-03 | Outpatient (CLI) | payer OTHER | LOC: FIMAGING 13:38 | PROVIDERS: ATTEND Internal Medicine Critical Care Medicine | DX: J84.10 Pulmonary fibrosis, unspecified (principal); J44.9 Chronic obstructive pulmonary disease, unspecified; I25.10 Atherosclerotic heart disease of native coronary artery without angina pectoris; R59.9 Enlarged lymph nodes, unspecified ==